=== PATIENT | female | born 1950 | race Caucasian/White ===

== ENCOUNTER 2022-03-20 21:50 | Emergency (ER) | payer OTHER ==
[2022-03-21] MEDS ORDERED: CIPROFLOXACIN HCL 500 MG TAB ONE (00:27)
[2022-03-21] MEDS ORDERED: CLINDAMYCIN 600MG/D5W 600 MG/50 ML BAG IV ONE (00:28)
[2022-03-21] MEDS ORDERED: HYDROCODONE/APAP 10/325 TAB ONE (00:28)
--- NOTE | 2022-03-21 01:16 | EDPHYS ---
Physician Documentation [facility] Name: Leena Esparza Age: 71 yrs Sex: Female : 1950 Arrival Date: 03/20/2022 Time: 21:54 Bed 5 Private MD: ED Physician Martinez Demarco HPI: 03/21 01:10 This 71 yrs old Female presents to ER via Ambulatory with complaints of Insect Bite. kdr 01:10 The patient presents with an abscess of the right religion, The patient presents with kdr cellulitis of the . Description: The affected area is small. Onset: The symptoms/episode began/occurred gradually, 2 day(s) ago. 02:14 Possible cause(s): insect sting. Associated signs and symptoms: Pertinent positives: kdr headache, swelling, Right facial swelling. Modifying factors: the symptoms are alleviated by nothing, the symptoms are aggravated by nothing. Severity of symptoms: At their worst the symptoms were mild, moderate, just prior to arrival. The patient has not experienced similar symptoms in the past. The patient has not recently seen a physician. Historical: - Allergies: 03/20 22:27 Zofran; aa9 22:27 amoxicillin; aa9 - PMHx: 22:27 Myocardial infarction; aa9 - PSHx: 22:27 stent; fusion of C4-C6; aa9 - Immunization history:: Client reports receiving the 2nd dose of the Covid vaccine. - Social history:: Smoking status: Patient reports the use of cigarette tobacco products, smokes one-half pack cigarettes per day. ROS: 03/21 02:14 Constitutional: Negative for fever, chills, and weight loss, Eyes: Negative for injury, kdr pain, redness, and discharge, Neck: Negative for injury, pain, and swelling, Cardiovascular: Negative for chest pain, palpitations, and edema, Respiratory: Negative for shortness of breath, cough, wheezing, and pleuritic chest pain, Abdomen/GI: Negative for abdominal pain, nausea, vomiting, diarrhea, and constipation, Back: Negative for injury and pain, : Negative for injury, bleeding, discharge, and swelling, MS/Extremity: Negative for injury and deformity, Neuro: Negative for headache, weakness, numbness, tingling, and seizure activity. Psych: Negative for depression, anxiety, suicide ideation, homicidal ideation, and hallucinations, Allergy/Immunology: Negative for hives, rash, and allergies, Endocrine: Negative for neck swelling, polydipsia, polyuria, polyphagia, and marked weight changes, Hematologic/Lymphatic: Negative for swollen nodes, abnormal bleeding, and unusual bruising. Skin: Positive for cellulitis, erythema, of the right religion. Exam: 02:14 Constitutional: This is a well developed, well nourished patient who is awake, alert, kdr and in no acute distress. 02:14 Head/face: Noted is erythema, that is mild, of the right religion, swelling, tenderness, that is moderate, Indurated tissue. Vital Signs: 03/20 22:26 BP 120 / 99; Pulse 96; Resp 18 S; Temp 99.7(O); Pulse Ox 99% on R/A; Weight 72.57 kg aa9 (R); Height 5 ft. 5 in. (165.10 cm) (R); Pain 8/10; 03/21 00:15 BP 156 / 85; Pulse 87; Resp 16; Pulse Ox 97% on R/A; jb4 03/20 22:26 Body Mass Index 26.63 (72.57 kg, 165.10 cm) aa9 MDM: 01:16 Patient medically screened. kdr 02:14 Data reviewed: vital signs, nurses notes, lab test result(s), radiologic studies. kdr Counseling: I had a detailed discussion with the patient and/or guardian regarding: the historical points, exam findings, and any diagnostic results supporting the discharge/admit diagnosis, radiology results, the need for outpatient follow up. ED course: Since the fluid collection did not appear to be purulent or abscess in nature but rather cystic, and also given that very small in nature, will apply antibiotic treatment in hopes of resolution. Patient was instructed that most likely this will resolve with antibiotics but it may become worse. Further that should he get worse, she should be returning to the nearest emergency department for reevaluation. Patient was discharged in good condition. She improved with the interventions given. She was happy with the care provided the plan for discharge and follow-up. 03/20 23:00 Order name: US Abdi Nonvasular Limited kdr Administered Medications: 00:37 Drug: [place] (HYDROcodone-acetaminophen) 10 mg-325 mg 1 tabs Route: PO; jb4 01:28 Follow up: Response: No adverse reaction as6 00:38 Drug: Cipro (ciprofloxacin) 500 mg Route: PO; jb4 01:30 Follow up: Response: No adverse reaction as6 00:46 Drug: Clindamycin 600 mg Route: IVPB; Infused Over: 30 mins; Site: right forearm; jb4 01:30 Follow up: Response: No adverse reaction; IV Status: Completed infusion; IV Intake: [id number] 01:28 Drug: morphine 4 mg Route: IM; Site: right deltoid; as6 01:30 Follow up: Response: No adverse reaction as6 Disposition Summary: 03/21/22 01:16 Discharge Ordered Location: Home kdr Problem: new kdr Symptoms: have improved kdr Condition: Stable kdr Diagnosis - Cellulitis of face kdr Followup: kdr - With: Private Physician - When: 2 - 3 days - Reason: If symptoms return, Further diagnostic work-up, Recheck today's complaints, Continuance of care, Re-evaluation by your physician Discharge Instructions: - Discharge Summary Sheet kdr - Cellulitis, Adult, [id number] kdr Forms: - Medication Reconciliation Form kdr - Thank You Letter kdr - Antibiotic Education kdr - Prescription Opioid Use kdr Prescriptions: - Cipro 500 mg Oral Tablet - take 1 tablet by ORAL route every 12 hours for 10 days; 20 tablet; Refills: 0, kdr Product Selection Permitted - Bactrim DS 800-160 mg Oral Tablet - take 1 tablet by ORAL route every 12 hours for 10 days; 20 tablet; Refills: 0, kdr Product Selection Permitted - Tylenol-Codeine #3 300 mg-30 mg Oral - take 1 tablet by ORAL route every 4-6 hours At night as needed for sleep; 12 kdr tablet; Refills: 0, Product Selection Permitted Signatures: Dispatcher [employer] Martinez Pressley MD MD kdr Loi Eric RN RN jb4 Jarvis Ríos RN RN as6 Paulina Reid RN RN aa9
--- NOTE | 2022-03-21 01:16 | ER ---
Nurse's Notes [facility] Name: Leena Esparza Age: 71 yrs Sex: Female : 1950 Arrival Date: 03/20/2022 Time: 21:54 Bed 5 Private MD: Diagnosis: Cellulitis of face Presentation: 03/20 22:26 Chief complaint: Patient states: I had a insect bite on my right side of my face, the aa9 day before yesterday. I don't know what bug it was. It hurts and its swelling.I Have a headache. Coronavirus screen: Vaccine status: Patient reports receiving the 2nd dose of the covid vaccine. Ebola Screen: No symptoms or risks identified at this time. Initial Sepsis Screen: Does the patient meet any 2 criteria? No. Patient's initial sepsis screen is negative. Does the patient have a suspected source of infection? Yes:. Risk Assessment: Do you want to hurt yourself or someone else? Patient reports no desire to harm self or others. Onset of symptoms was March 20, 2022. 22:26 Method Of Arrival: Ambulatory aa9 22:26 Acuity: IKE 4 aa9 Triage Assessment: 22:29 Bite description: bite sustained to right rastafarian by an unknown animal. General: Appears aa9 uncomfortable, Behavior is cooperative, anxious. Pain: Complains of pain in face Pain currently is 8 out of 10 on a pain scale. Historical: - Allergies: 22:27 Zofran; aa9 22:27 amoxicillin; aa9 - PMHx: 22:27 Myocardial infarction; aa9 - PSHx: 22:27 stent; fusion of C4-C6; aa9 - Immunization history:: Client reports receiving the 2nd dose of the Covid vaccine. - Social history:: Smoking status: Patient reports the use of cigarette tobacco products, smokes one-half pack cigarettes per day. Screenin:30 Abuse screen: Denies threats or abuse. Denies injuries from another. Nutritional aa9 screening: No deficits noted. Tuberculosis screening: No symptoms or risk factors identified. Fall Risk None identified. Assessment: 22:30 Reassessment: see triage note. jb4 03/21 00:00 Reassessment: Patient appears in no apparent distress at this time. Patient and/or jb4 family updated on plan of care and expected duration. Pain level reassessed. Patient is alert, oriented x 3, equal unlabored respirations, skin warm/dry/pink. Vital Signs: 03/20 22:26 BP 120 / 99; Pulse 96; Resp 18 S; Temp 99.7(O); Pulse Ox 99% on R/A; Weight 72.57 kg aa9 (R); Height 5 ft. 5 in. (165.10 cm) (R); Pain 8/10; 03/21 00:15 BP 156 / 85; Pulse 87; Resp 16; Pulse Ox 97% on R/A; jb4 03/20 22:26 Body Mass Index 26.63 (72.57 kg, 165.10 cm) aa9 ED Course: 03/20 21:54 Patient arrived in ED. bp1 22:08 Martinez Demarco MD is Attending Physician. kdr 22:27 Triage completed. aa9 22:30 Arm band placed on. aa9 23:50 US Extrmty Nonvasular Limited In Process Unspecified. EDMS 03/21 00:00 Jarvis Ríos, GIANLUCA is Primary Nurse. as6 00:46 Inserted saline lock: 22 gauge in right forearm, using aseptic technique. jb4 01:30 No provider procedures requiring assistance completed. IV discontinued, intact, as6 bleeding controlled, No redness/swelling at site. Pressure dressing applied. 01:31 Bed in low position. Call light in reach. Side rails up X 1. as6 Administered Medications: 00:37 Drug: [place] (HYDROcodone-acetaminophen) 10 mg-325 mg 1 tabs Route: PO; jb4 01:28 Follow up: Response: No adverse reaction as6 00:38 Drug: Cipro (ciprofloxacin) 500 mg Route: PO; jb4 01:30 Follow up: Response: No adverse reaction as6 00:46 Drug: Clindamycin 600 mg Route: IVPB; Infused Over: 30 mins; Site: right forearm; jb4 01:30 Follow up: Response: No adverse reaction; IV Status: Completed infusion; IV Intake: [id number] 01:28 Drug: morphine 4 mg Route: IM; Site: right deltoid; as6 01:30 Follow up: Response: No adverse reaction as6 Medication: 01:31 VIS not applicable for this client. as6 Intake: 01:30 IV: 50ml; Total: 50ml. as6 Outcome: 01:16 Discharge ordered by . kdr 01:31 Discharged to home ambulatory, with family. as6 01:31 Condition: stable 01:31 Discharge instructions given to patient, Instructed on discharge instructions, follow up and referral plans. medication usage, Demonstrated understanding of instructions, follow-up care, medications, Prescriptions given X 3. 01:31 Patient left the ED. as6 Signatures: Dispatcher [employer] EDMS Martinez Demarco MD MD kdr Loi Eric RN RN jb4 Tanisha Fisher Ashby, RN RN as6 Paulina Reid, GIANLUCA RN aa9 Corrections: (The following items were deleted from the chart) 00:46 00:46 Clindamycin 600 mg IVPB in right antecubital over 30 mins david jb4
[2022-03-21] MEDS ORDERED: MORPHINE 4 MG/ML SYR ONE (01:35)
[2022-03-21 03:37] VITALS: TEMP 99.7
[2022-03-21 03:40] VITALS: BP 156/85; O2SAT 97
--- NOTE | 2022-03-21 12:25 | RAD REPORT ---
EXAM DESCRIPTION: US - Extremity Nonvascular Limited - 03/20/2022 11:48 pm CLINICAL HISTORY: 71 years, Female, Animal bite Extremity Nonvascular Limited COMPARISON: None. FINDINGS: Multiple grayscale images of the superficial subcutaneous lateral to the eye were performe d. There is a superficial subcutaneous anechoic area lateral to the hilum measuring 0.3 x 0.2 x 0.3 cm. Corresponding to the area of the palpable abnormality suggesting the possibility of cystic lesion and /or fluid within the region of patient injury. IMPRESSION: Superficial subcutaneous anechoic area lateral to the hilum measuring 0.3 x 0.2 x 0.3 cm . Corresponding to the area of the palpable abnormality suggesting the possibility of cystic lesion a nd/or fluid within the region of patient injury. Electronically signed by: Erasmo Murray MD 03/21/2022 12:08 AM CDT Due to temporary technical issues with the PACS/Fluency reporting system, reports are being signed by the in house radiologists without review as a courtesy to insure prompt reporting. The interpreting radiologist is fully responsible for the content of the report.
== END 2022-03-21 01:31 | disposition home or self-care (01) ==
LOC: ER 21:50
DX: L03.211 Cellulitis of face (principal); F17.210 Nicotine dependence, cigarettes, uncomplicated; I25.2 Old myocardial infarction; Z88.1 Allergy status to other antibiotic agents; Z88.8 Allergy status to other drugs, medicaments and biological substances
CPT/HCPCS: 76882; 96365; 96372; 99284